=== PATIENT | male | born 1930 | race Caucasian/White ===

== ENCOUNTER → 2017-02-03 | Outpatient (CLI) | payer OTHER, BC ==
[~2017-02-03] MED LIST: ALEVE220 MG PO; DESYREL100 MG PO; ELIQUIS2.5 MG PO; FLOMAX0.4 MG PO; FLONASE16 G1 BOTH NARES; FLUOXETINE HCL20 M1 PO; KLOR-CON 1010 ME1 PO; LIPITOR40 MG PO; LISINOPRIL2.5 MG PO; LO-DOSE ASPIRIN81 M1 PO; OMEPRAZOLE20 M2 PO; PROAIR HFA8.5 GM IH; PYRIDIUM100 MG PO; SOTALOL80 MG PO; TRAMADOL HCL50 MG PO
== END | disposition home or self-care (01) ==
DX: R13.12 Dysphagia, oropharyngeal phase (principal); R13.11 Dysphagia, oral phase; R13.13 Dysphagia, pharyngeal phase; R47.9 Unspecified speech disturbances
CPT/HCPCS: 92611 GN; G8996 GN; G8997 GN; G8998 GN

== ENCOUNTER → 2017-03-21 | Outpatient (CLI) | payer MEDICARE, BC | END | disposition home or self-care (01) | LOC: CDC 09:43 | DX: Z01.810 Encounter for preprocedural cardiovascular examination (principal); Z85.51 Personal history of malignant neoplasm of bladder; R94.31 Abnormal electrocardiogram [ECG] [EKG] | CPT/HCPCS: 93000 ==

== ENCOUNTER 2017-12-13 19:00 | Inpatient (IN) | payer OTHER, BC ==
[~2017-12-13] VITALS: Ht 172.7 cm; Wt 89.8 kg
[2017-12-13 19:13] LABS: BASOPHIL (%) 0.9 % (0-1); BASOPHIL COUNT 0.1 K/uL (0-0.1); EOSINOPHIL (%) 5.6 % (0-5); EOSINOPHIL COUNT 0.4 K/uL (0-0.3); HEMATOCRIT 39.2 % (38.0-50.0); HEMOGLOBIN 13.7 G/DL (12.5-16.6); IMMATURE GRANULOCYTE (%) 0.5 % (0.0-0.7); LYMPHOCYTE (%) 20.1 % (15-42); LYMPHOCYTE COUNT 1.6 K/uL (1.0-2.8); MCH 29.7 PG (29.0-34.0); MCHC 34.9 G/DL (30.0-36.0); MONOCYTE COUNT 0.6 K/uL (0-0.8); NEUTROPHIL (%) 64.9 % (45-76); PLATELET COUNT 185 K/uL (156-360); RBC DIS.WIDTH-CV 12.8 % (11.8-14.6); RBC DIS.WIDTH-SD 39.3 % (39-53); RED BLOOD COUNT 4.61 M/uL (4.00-5.50); WHITE BLOOD COUNT 7.7 K/uL (4.1-10.2)
[2017-12-13 19:24] LABS: INTER. NORMALIZED RATIO 1.2
[2017-12-13 19:25] LABS: AMYLASE 64 IU/L (1-118); CHLORIDE 105 mEq/L (99-109); POTASSIUM 3.7 mEq/L (3.7-5.4); SODIUM 141 mEq/L (136-147)
[2017-12-13 19:27] LABS: GLUCOSE 145 mg/dL (70-99); PTT 28.4 SEC (25-37)
[2017-12-13 19:30] LABS: SERUM ETHYL ALCOHOL < 10 mg/dL
[2017-12-13 19:31] LABS: CREATININE 1.3 mg/dL (0.6-1.3); GFR ESTIMATE (CALCULATED) 56 mL/min/ (58.99-99999)
[2017-12-13 19:32] LABS: UREA NITROGEN (BUN) 29 mg/dL (9-23)
[2017-12-13 19:34] LABS: LIPASE 32 U/L (1.0-51.0)
[2017-12-13 19:38] LABS: TROP-I INTERPRETATION NEGATIVE; TROPONIN-I < 0.01 ng/mL (0.0-0.30)
[2017-12-13 22:37] LABS: APPEARANCE CLEAR ((CLEAR)); BILIRUBIN NEGATIVE; BLOOD NEGATIVE; COLOR YELLOW ((YELLOW)); GLUCOSE (STRIP) NEGATIVE; KETONES NEGATIVE; LEUKOCYTES NEGATIVE; NITRITE NEGATIVE; PROTEIN (STRIP) NEGATIVE; SPECIFIC GRAVITY 1.046 (1.000-1.030); UCUL ADDED? NO
[2017-12-13 23:25] LABS: AMPHETAMINE NEGATIVE (500 ng/mL); BARBITURATES NEGATIVE (200 ng/mL); BENZODIAZEPINES NEGATIVE (150 ng/mL); BUPRENORPHINE NEGATIVE (10 ng/mL); COCAINE NEGATIVE (150 ng/mL); METHADONE NEGATIVE (200 ng/mL); METHAMPHETAMINE NEGATIVE (500 ng/mL); OPIATES (MORPHINE) NEGATIVE (100 ng/mL); OXYCODONE NEGATIVE (100 ng/mL); PHENCYCLIDINE NEGATIVE (25 ng/mL); PROPOXYPHENE NEGATIVE (300 ng/mL); THC CANNABINOIDS NEGATIVE (50 ng/mL); TRICYCLIC ANTIDEPRESSANTS NEGATIVE (300 ng/mL)
[2017-12-13] MEDS ORDERED: PROVENTIL HFA6.7 GM IH (23:43)
[2017-12-13] MEDS ORDERED: SPIRIVA1 INHALATI IH (23:50)
[2017-12-13] MEDS ORDERED: SYMBICORT60 INHALAT IH (23:51)
[2017-12-13] MEDS ORDERED: ALBUTEROL2.5 MG/3 M IH (23:52)
[2017-12-13] MEDS ORDERED: DIOVAN40 MG PO (23:52)
[2017-12-13] MEDS ORDERED: FLOMAX0.4 MG PO (23:53)
[2017-12-13] MEDS ORDERED: VESICARE10 MG PO (23:54)
[2017-12-13] MEDS ORDERED: FLONASE16 G1 BOTH NARES (23:56)
[2017-12-13] MEDS ORDERED: TYLENOL REGULA325 MG PO (23:57)
[2017-12-13] MEDS ORDERED: LOPRESSOR25 MG PO (23:58)
[2017-12-13] MEDS ORDERED: FLEXERIL5 MG PO (23:59)
[2017-12-14 02:00] VITALS: BP 151/71
[2017-12-14 02:00] LABS: TROP-I INTERPRETATION NEGATIVE; TROPONIN-I < 0.01 ng/mL (0.0-0.30)
[2017-12-14 02:02] LABS: HDL CHOLESTEROL 37 MG/DL (Desirable>=40); LDL CHOLESTEROL 91 mg/dL (Desirable<100); NON-HDL CHOLESTEROL 107 mg/dL (Desirable<160); TOTAL CHOLESTEROL 144 mg/dL (Desirable<200); TRIGLYCERIDES 82 MG/DL (Normal: <150)
[2017-12-14 07:23] LABS: BASOPHIL (%) 0.9 % (0-1); BASOPHIL COUNT 0.1 K/uL (0-0.1); EOSINOPHIL (%) 5.6 % (0-5); EOSINOPHIL COUNT 0.3 K/uL (0-0.3); HEMATOCRIT 38.3 % (38.0-50.0); HEMOGLOBIN 13.3 G/DL (12.5-16.6); IMMATURE GRANULOCYTE (%) 0.3 % (0.0-0.7); LYMPHOCYTE (%) 24.1 % (15-42); LYMPHOCYTE COUNT 1.4 K/uL (1.0-2.8); MCH 29.8 PG (29.0-34.0); MCHC 34.7 G/DL (30.0-36.0); MCV 85.7 FL (86-99); MONOCYTE (%) 8.2 % (3-12); MONOCYTE COUNT 0.5 K/uL (0-0.8); NEUTROPHIL (%) 60.9 % (45-76); NEUTROPHIL COUNT 3.5 K/uL (1.8-6.4); PLATELET COUNT 181 K/uL (156-360); RBC DIS.WIDTH-CV 12.7 % (11.8-14.6); RBC DIS.WIDTH-SD 39.4 % (39-53); RED BLOOD COUNT 4.47 M/uL (4.00-5.50); WHITE BLOOD COUNT 5.8 K/uL (4.1-10.2)
[2017-12-14 07:46] LABS: CHLORIDE 107 MEQ/L (99-109); CREATININE 1.1 MG/DL (0.6-1.3); GFR ESTIMATE (CALCULATED) > 59 mL/min/ (58.99-99999); GLUCOSE 127 mg/dL (70-99); SODIUM 142 MEQ/L (136-147); UREA NITROGEN (BUN) 24 mg/dL (9-23)
[2017-12-14 07:52] LABS: TROP-I INTERPRETATION NEGATIVE; TROPONIN-I < 0.01 ng/mL (0.0-0.30)
[2017-12-14 07:56] VITALS: BP 145/80
[2017-12-14 11:56] LABS: HEMOGLOBIN A1c (GLYCOHEMOGLOB) 6.2 % (Below 5.7)
[2017-12-14 12:00] VITALS: BP 147/71
[2017-12-14 16:23] VITALS: BP 143/85
[2017-12-14 19:25] VITALS: BP 122/65
[2017-12-14 23:56] VITALS: BP 113/58
[2017-12-15 03:55] VITALS: BP 101/56
[2017-12-15 07:56] VITALS: BP 113/62
[2017-12-15 11:42] VITALS: BP 128/63
[2017-12-15 15:54] VITALS: BP 112/58
[2017-12-15] MEDS ORDERED: PREDNISONE10 MG PO (17:44)
[2017-12-15] MEDS ORDERED: ASPIR-LOW81 MG PO (17:44)
== END 2017-12-15 19:52 | disposition home or self-care (01) | DRG 65 ==
LOC: EME 19:00 → 5SOUTH 12-14 00:44 → EDOF 12-14 00:44 → ENRESERV 12-14 00:47 → 5SOUTH 12-14 01:45
PROVIDERS: Emergency Medicine; Hospitalist
DX: I63.233 Cerebral infarction due to unspecified occlusion or stenosis of bilateral carotid arteries (principal); I42.9 Cardiomyopathy, unspecified; I48.0 Paroxysmal atrial fibrillation; I25.10 Atherosclerotic heart disease of native coronary artery without angina pectoris; E78.5 Hyperlipidemia, unspecified; I10 Essential (primary) hypertension; Z95.1 Presence of aortocoronary bypass graft; Z87.891 Personal history of nicotine dependence; Z95.810 Presence of automatic (implantable) cardiac defibrillator; Z86.711 Personal history of pulmonary embolism; J43.9 Emphysema, unspecified; I73.9 Peripheral vascular disease, unspecified; Z85.51 Personal history of malignant neoplasm of bladder; Z86.14 Personal history of Methicillin resistant Staphylococcus aureus infection; Z86.718 Personal history of other venous thrombosis and embolism; Z86.73 Personal history of transient ischemic attack (TIA), and cerebral infarction without residual deficits; Z79.01 Long term (current) use of anticoagulants; Z95.5 Presence of coronary angioplasty implant and graft; K21.9 Gastro-esophageal reflux disease without esophagitis; I71.4 Abdominal aortic aneurysm, without rupture; I25.2 Old myocardial infarction; R29.702 NIHSS score 2; R29.810 Facial weakness; Z66 Do not resuscitate
CPT/HCPCS: 70450; 70496; 70498; 80047; 80048; 80061; 81003; 82150; 83036; 83690; 84484; 85025; 85610; 85730; 86850; 86900; 86901; 93005; 93306; 93975; 94640; 94799; 99281; 99285; G0480; J7512